=== PATIENT | male | born 2000 | race Two or more races ===

== ENCOUNTER 2023-03-17 15:51 | Emergency (ER) | payer BC, OTHER ==
[~2023-03-17] VITALS: Ht 162.6 cm; Wt 63.5 kg
[2023-03-17 16:04] VITALS: BP 120/64
[2023-03-17] MEDS ORDERED: ATA25 PO (16:14)
--- NOTE | 2023-03-17 16:38 | NUR ---
Patient discharged with v/s stable. Written and verbal after care instructions given and explained. Patient verbalized understanding. Ambulatory with steady gait. All questions addressed prior to discharge. Advised to follow up with PMD.
== END 2023-03-17 16:38 | disposition home or self-care (01) ==
LOC: MED 15:51
DX: F41.9 Anxiety disorder, unspecified (principal); Z79.899 Other long term (current) drug therapy
CPT/HCPCS: 99283

== ENCOUNTER 2023-03-25 16:53 | Emergency (ER) | payer BC ==
[~2023-03-25] VITALS: Ht 175.3 cm; Wt 75.9 kg
[~2023-03-25 16:53] MED LIST: ATA25 PO
[2023-03-25 17:06] VITALS: BP 99/54
--- NOTE | 2023-03-25 18:38 | NUR ---
CALLED TO CHAIR, NO RESPONSE
--- NOTE | 2023-03-25 19:22 | NUR ---
Pt called no response.
[2023-03-25 19:25] VITALS: BP 99/54
--- NOTE | 2023-03-25 19:25 | NUR ---
Pt left without being seen by ERMD
== END 2023-03-25 19:25 | disposition left against medical advice (07) ==
LOC: MED 16:53
DX: F41.9 Anxiety disorder, unspecified (principal); Z53.21 Procedure and treatment not carried out due to patient leaving prior to being seen by health care provider
CPT/HCPCS: 99281